=== PATIENT | male | born 1970 | race Asian ===

== ENCOUNTER → 2018-08-21 09:40 | Outpatient (CLI) | payer OTHER, SELFPAY ==
--- NOTE | 2018-08-21 09:43 | DI.NM.S_ITS ---
PROCEDURE: NM HIDA WITH CCK PHARMACEUTICAL: 5.4 mCi Tc-99m mebrofenin IV; 2.2 mcg CCK IV. INDICATIONS: atypical right chest pain TECHNIQUE: Following intravenous administration of Tc-99m mebrofenin, sequential anterior abdominal images were obtained. To evaluate the contractile response of the gallbladder in response to Cholecystokinin (CCK), sincalide (0.02 ?g/kg) was administered by slow intravenous infusion approximately 60 minutes after the administration of the radiopharmaceutical. Sequential imaging was continued for 30 minutes after the start of CCK infusion. Gallbladder ejection fraction was calculated. COMPARISON: None. FINDINGS: Biliary scan: There is normal tracer uptake and excretion by the liver. There is normal visualization of the intrahepatic ducts, common bile duct, and gallbladder. There is normal tracer transit into the duodenum. CCK stimulation: There is reduced contractile response of the gallbladder to CCK infusion. The calculated gallbladder ejection fraction is 16%; normal values are above 35%. It has been shown that any patient abdominal pain after CCK administration is related to the rate of CCK injection, rather than to any underlying gallbladder disease (Clinical Nuclear Medicine 2012; 37: 63-70. Journal of Nuclear Medicine 2014; 55: 1-9). IMPRESSION: Normal hepatobiliary scan but abnormal gallbladder ejection fraction of 16% when the lower limits of normal is 35%. Dictated by: Jorge Rizvi M.D. on 08/21/2018 at 13:46 Approved by: Jorge Rizvi M.D. on 08/21/2018 at 13:47
== END ==
PROVIDERS: PCP Family Medicine; Visit Provider Surgery
DX: K80.20 Calculus of gallbladder without cholecystitis without obstruction (principal); R07.89 Other chest pain
CPT/HCPCS: 78227; A9537; J2805

== ENCOUNTER 2018-10-22 08:12 | Day surgery (SDC) | payer OTHER, SELFPAY ==
[2018-10-11 13:27] VITALS: BMI 38.9
[2018-10-22] VITALS (11 sets, daily range): BP systolic 120–156; BP diastolic 79–108; PULSE 86–94; RESP 12–26; TEMP 36.1–37.1; O2SAT 88–97; BMI 37.6
--- NOTE | 2018-10-22 | PATH_ITS ---
[facility] Accession Number: [id number] . 01 Material submitted: . GALLBLADDER AND CONTENTS . 02 Diagnosis: Gallbladder and Contents, Laparoscopic Cholecystectomy: Chronic cholecystitis, cholelithiasis, and cholesterolosis. MRV/10/24/2018 . 02 Electronically signed: . Claudia Velarde MD, Pathologist NPI- [id number] . 01 Gross description: . Received in formalin, labeled gallbladder / contents, is an intact gallbladder (length-8.2 cm, diameter-3.7 cm) with green smooth shiny serosa and a patent cystic duct. No lymph nodes are identified. The lumen contains dark green viscous bile and multiple bright yellow gritty friable calculi (1.0 x 0.2 x 0.1 cm in aggregate). The mucosa is dark green smooth and flat. The wall is up to 0.1 cm thick. No nodules, masses or lesions are identified. Section code: (A1) cystic duct resection margin and two serial sections from the body; (A2) two longitudinal sections from the fundus. ([id number]) /MRV . 02 Pathologist provided ICD-10: K81.1 . 02 CPT . 754915 Performed at: 01 [facility] [address], [place], [place] [id number] MD Fredo Martin MD Phone: [phone] Performed at: 02 [facility] [address] [place], [place] [id number] MD Rebecca Cronin MD Phone: [phone]
[2018-10-22] MEDS: LACTATED RINGERS 1,000 ML 42 ML IV ×2 (08:53→11:05)
--- NOTE | 2018-10-22 08:53 | PM.PREOP ---
Pre-operative Note Interval Note History & Physical reviewed/Exam performed by Physician: Yes Changes to H&P: No H&P completed within 30 days and has changed as indicated here:: Patient seen and examined again in the preoperative area. There have been no changes to his history and physical examination placed on the chart within the last 30 days. Proceed with laparoscopic cholecystectomy today as planned.
[2018-10-22] MEDS: CEFAZOLIN 2 GM/100 ML FROZ.PIGGY IV (09:20)
--- NOTE | 2018-10-22 09:42 | SUR.OPER ---
Supine on padded OR bed, head on pillow, arms secured on padded arm boards at <90 degrees abduction, legs uncrossed, safety belt at thigh, tape over blanket over lower legs.
[2018-10-22] MEDS: BUPIVACAINE 0.5% (PF) VIAL 30 ML INJ (09:48)
[2018-10-22] MEDS: LIDOCAINE 1% W/EPI INJ 20 ML INJ (09:49)
[2018-10-22] MEDS: HYDROMORPHONE 2 MG INJ 0.5 MG IV ×4 (10:47→11:14)
--- NOTE | 2018-10-22 10:54 | PM.OP.1 ---
Operative Date/Time/Diagnoses Date of procedure: 10/22/18 Time of procedure: 10:54 Pre-op diagnosis: Biliary dyskinesia Post-op diagnosis: same Procedure & Clinicians Procedure: Laparoscopic cholecystectomy Same procedure as scheduled: Yes Indications: 47-year-old obese male who presented with atypical right-sided chest pain radiating to the back on occasion. He had extensive evaluation including cardiac testing and endoscopy. He remains symptomatic. Ultrasound was normal but HIDA scan demonstrated markedly decreased ejection fraction of the gallbladder. Therefore laparoscopic cholecystectomy was recommended for biliary dyskinesia. Surgeon: Durga Patino Click Yes if Unassisted: Yes Anesthesia Type: General Operative Notes Findings: 1. Copious intra-abdominal fat and generous omentum 2. Grossly normal liver, stomach, small bowel, and colon within the limits of laparoscopic visualization Closure Type: primary Specimen(s): other (Gallbladder) Prosthetic devices, grafts, tissues, transplants, or devices: None Estimated Blood Loss (mL): 25 Blood products transfused: none Procedure in detail: After obtaining informed consent the patient was brought to the operating room placed supine on the table. After satisfactory induction of anesthesia the abdomen was prepped and draped in usual sterile fashion. SCOAP time out was performed per standard protocol. A 1 :1 mixture 1% lidocaine with 1: 100,000 epinephrine and 0.5% plain Marcaine was injected in the skin and subcutaneous tissue at the superior aspect of the umbilicus for postoperative analgesia. Vertical midline incision was created for distance of approximately 3 cm above the umbilicus with 11 scalpel blade. Blunt dissection revealed the rectus fascia which was divided in the midline with 11 scalpel blade. Edges of the fascia were secured with Anne clamps and elevated into the operative field. Fascia was secured superiorly and inferiorly with interrupted 0 Vicryl suture. Under direct visualization the peritoneum was entered with Carlotta clamp and a blunt Breen 12 mm trocar was inserted. Carbon dioxide pneumoperitoneum was created and the abdomen was visually explored with a 30 degree 5 mm laparoscope. Findings are as above. Patient was placed in reverse Trendelenburg position and appropriate position was found for placement of 3 individual 5 mm trocars. First trocar was placed in the epigastric region under direct laparoscopic visualization after achieving local anesthesia. Trocar was inserted to the right of the falciform ligament. In a similar fashion 2 other trocars were placed in right lateral abdomen. Fundus of the gallbladder was secured with a ratcheted grasper and retracted superiorly and medially over the liver edge. Infundibulum of the gallbladder was secured with a 2nd ratcheted Doretha grasper and retracted inferiorly and laterally. Meticulous dissection in the triangle of Calot was performed with a Maryland dissector thereby exposing the cystic duct and cystic artery. The avascular window between the duct and the artery was identified as the duct and artery were completely encircled with the Maryland dissector. The junction of the artery with the gallbladder as well as the cystic duct with the gallbladder was clearly identified. The critical view of the liver bed through the avascular window was also obtained. Three clips were placed proximally on the cystic duct and 2 clips proximally on the cystic artery. One clip was placed distally on each structure at its junction with the gallbladder. Laparoscopic scissors were used to divide the structures and the gallbladder was then liberated from the liver bed using monopolar cautery. Specimen was placed in an endo-pouch and retrieved through the umbilical port site. Specimen was sent for permanent section. Gallbladder fossa was rendered hemostatic with monopolar cautery. Right upper quadrant was irrigated with copious amounts of sterile saline solution and noted to be hemostatic. Previously placed clips were in good position without evidence of hemorrhage or bile leak. Patient was returned to supine position in the right upper quadrant was again irrigated. Irrigant returned clear. Instruments and trocars were removed under direct visualization and noted to be hemostatic. Carbon dioxide was evacuated. Fascia at the umbilical site was closed with the previously placed 0 Vicryl suture. Skin at all 4 incisions was closed in a running subcuticular fashion with 4 0 Monocryl suture. Dermal adhesive was applied to all incisions. Anesthesia was reversed and patient extubated in the operating room. He was taken recovery stable condition. Complications: none Condition: stable Disposition: PACU Plan for aftercare: 1. Discharge home 2. Follow up in surgery Clinic in 2 weeks
[2018-10-22] MEDS: ONDANSETRON 4 MG/2 ML INJ IV (10:56)
[2018-10-22] MEDS: METOCLOPRAMIDE 10 MG/2 ML INJ IV (11:03)
--- NOTE | 2018-10-22 11:24 | SUR.PHASEI ---
pt reported ruq pain 7/10, smiling, face relaxed. denied nausea at this time, c/o need to burp. Abd distended, soft.
--- NOTE | 2018-10-22 11:54 | SUR.PHASEII ---
1145 pt to opd from pacu, surgical sites dry and clean , taking fluids and resting
[2018-10-22] MEDS: OXYCODONE/ACETAMINOPHEN 5/325 TABLET 1 TAB PO (12:44)
--- NOTE | 2018-10-22 13:16 | SUR.PHASEII ---
1305 Assumed care, received report. Friend has returned with medications, patient mostly dozing but arouses easily, states that he feels ready to go home. IV dc'd after VS, clothes given. 1314 Patient dressed, sitting up on bedside, states that he feels lightheaded, returned to bed.
--- NOTE | 2018-10-22 13:27 | SUR.PHASEII ---
1326 States that he feels drowsy; denies feeling lightheaded. Transferred well-stable. To car in w/c by volunteer. Skin warm and dry, Resp unlabored. Fresh ice pack given to take home.
== END 2018-10-22 13:26 | disposition home or self-care (01) ==
PROVIDERS: PCP Family Medicine; Visit Provider Surgery
PROC: 0FT44ZZ Resection of Gallbladder, Percutaneous Endoscopic Approach (ICD-10-PCS; CPT 47562; principal; 2018-10-22 09:15)
DX: K81.1 Chronic cholecystitis (principal); I10 Essential (primary) hypertension; K21.9 Gastro-esophageal reflux disease without esophagitis; E11.9 Type 2 diabetes mellitus without complications
CPT/HCPCS: 47562; 88304; J0690; J1100; J1170; J1885; J2250; J2405; J2704; J2765; J3010

== ENCOUNTER 2019-07-01 11:57 | Emergency (ER) | payer OTHER, SELFPAY ==
[2019-07-01 12:07] VITALS: BP 130/86; PULSE 64; RESP 13; TEMP 36.3; O2SAT 96
--- NOTE | 2019-07-01 12:11 | DI.RAD.S_ITS ---
PROCEDURE: XR CHEST 1V INDICATIONS: Chest pain TECHNIQUE: One view of the chest was acquired. COMPARISON: None. FINDINGS: Surgical changes and devices: None. Lungs and pleura: Mild streaky bibasilar opacities more pronounced on the left. Lungs are otherwise clear. No pleural effusions or pneumothorax. Mediastinum: Mediastinal contours appear normal. Heart size is normal. Bones and chest wall: No suspicious bony lesions. Overlying soft tissues appear unremarkable. IMPRESSION: Mild streaky bibasilar opacities more pronounced on the left. Findings likely represent atelectasis given slightly diminished lung volumes. Developing airspace disease/pneumonia not excluded if clinically appropriate. Dictated by: Anson Renteria M.D. on 07/01/2019 at 12:42 Approved by: Anson Renteria M.D. on 07/01/2019 at 12:44
[2019-07-01 12:45] VITALS: BP 121/78; PULSE 74; RESP 16; O2SAT 98
[2019-07-01 12:57] LABS: Add Manual Diff / Slide Review NO; Basophils Absolute Auto 100 /uL (0-100); Basophils Percent Auto 1.3 % (0-2); Eosinophils Absolute Auto 100 /uL (0-450); Eosinophils Percent Auto 1.1 % (2-4); Hematocrit 42.9 % (41-53); Hemoglobin 14.7 g/dL (13.5-17.5); Lymphocytes Absolute Auto 2500 /uL (1100-4500); Lymphocytes Percent Auto 40.3 % (25-40); Mean Corpuscular HGB Conc 34.4 % (30-36); Mean Corpuscular Hemoglobin 30.1 PG (26-34); Mean Corpuscular Volume 87.5 fL (80-100); Monocytes Absolute Auto 400 /uL (0-900); Monocytes Percent Auto 7.3 % (3-14); Neutrophils Absolute Auto 3100 /uL (1500-7000); Platelet Count 257 X10^3/uL (150-400); Red Cell Distribution Width 13.6 % (11.6-14.8); White Blood Cell Count 6.1 X10^3/uL (4.5-11.0)
[2019-07-01 13:00] VITALS: BP 114/76; PULSE 73; RESP 17; O2SAT 97
[2019-07-01 13:03] LABS: Prothrombin Time 11.4 SECONDS (10.1-12.7)
--- NOTE | 2019-07-01 13:04 | ED.CHESTPAIN ---
HPI - Chest Pain General Chief Complaint: Chest Pain Stated Complaint: shooting pain in legs/ chest pain/ numbness Time Seen by Provider: 07/01/19 12:10 Source: patient Mode of arrival: Ambulatory Limitations: no limitations History of Present Illness HPI narrative: 48-year-old male here for multiple symptoms. He states that he is having tingling down both of his legs. This does not appear to be new. Has had an MRI recently was lower back but has not had the results of this. He states that he has seen physical therapy. He was told that the physical therapist skin normally do anything for him and he needs to look at ?alternative treatments ?that is when the MRI was ordered by his primary provider. He has no urinary symptoms or bowel changes. He does thinks that his lower extremity tingling is getting worse. He is not currently taking any medication for this. He also has other symptoms to include fatigue. He does have a history of sleep apnea and does use a BiPAP at night. He states that he is still waking up during the evening. Has a history of GERD. Also has some tightness throughout his chest and tingling in his arms as well. All of the symptoms are not necessarily new. Has not tried things for his symptoms. 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 Related Data Home Medications Medication Instructions Recorded Confirmed omeprazole 40 mg capsule,delayed 40 mg PO DAILY 08/14/18 11/07/18 release prazosin 2 mg capsule 2 mg PO BID 08/14/18 11/07/18 albuterol sulfate [ProAir HFA] 1 - 2 puff INHALATION Q4-6H PRN 10/11/18 11/07/18 sildenafil [Viagra] 50 mg PO DAILY PRN 10/11/18 11/07/18 atorvastatin 5 mg DAILY 10/22/18 11/07/18 bupropion HCl 300 mg DAILY 10/22/18 10/22/18 glimepiride 2 mg DAILY 10/22/18 11/07/18 promethazine 25 mg PRN 10/22/18 11/07/18 losartan 50 mg PO DAILY 07/01/19 07/01/19 nortriptyline 25 mg PO DAILY 07/01/19 07/01/19 prazosin 1 mg PO DAILY 07/01/19 07/01/19 propranolol 60 mg PO DAILY 07/01/19 sumatriptan succinate mg PO 07/01/19 Previous Rx's Medication Instructions Recorded docusate sodium [Colace] 100 mg PO BID #14 cap 02/20/17 docusate sodium [Colace] 100 mg PO BID #14 cap 10/22/18 oxycodone 5 mg PO Q4-6H PRN #30 tab 10/22/18 sennosides [Senokot] 8.6 mg PO BEDTIME #10 tab 10/22/18 hydrocodone 5 mg-acetaminophen 300 1 tab PO Q4-6H PRN #14 tab 10/24/18 mg tablet meloxicam [Mobic] 7.5 mg PO DAILY PRN #30 tab 07/01/19 Allergies Allergy/AdvReac Type Severity Reaction Status Date / Time No Known Drug Allergies Allergy Verified 10/21/18 13:08 Review of Systems Constitutional Constitutional: Denies body ache(s), Denies chills, Reports fatigue, Denies frequent falls, Denies headache(s), Reports lethargy, Reports malaise and Reports weakness Eyes Eyes: Denies change in vision ENT Ears, Nose, Mouth, and Throat: Denies vertigo, Denies dizziness, Denies headache(s) and Denies disequilibrium Cardiovascular Cardiovascular: Denies palpitations and Denies dyspnea Respiratory Respiratory: Denies cough and Denies dyspnea Gastrointestinal Gastrointestinal: Denies abdominal pain, Denies nausea and Denies vomiting Musculoskeletal Musculoskeletal: Denies myalgias, Denies arthralgias, Reports muscle weakness, Reports radiating pain into limb and Reports tingling Integumentary/Breasts Skin/Breast: Denies lesions and Denies rash Neurologic Neurologic: Denies behavioral changes, Denies vertigo, Denies dizziness, Denies frequent falls, Denies headache(s), Denies lack of coordination, Denies restless legs, Denies convulsions, Reports tingling, Denies disequilibrium and Reports weakness Psychiatric Psychiatric: Denies behavioral changes Endocrine Endocrine: Reports fatigue and Denies palpitations Hematologic/Lymphatic Hematologic/Lymphatic: Denies easy bleeding and Denies easy bruising Allergic/Immunologic Allergic/Immunologic: Denies urticaria Patient History Medical History Biliary dyskinesia (Acute) Cholelithiasis (Acute) Difficulty swallowing (Chronic) GERD (gastroesophageal reflux disease) (Chronic) Heartburn (Chronic) Hypertension (Acute) Lipoma of abdominal wall (Acute) Type 2 diabetes mellitus (Chronic ~09/20/18) Social History marital status: household members: spouse and children occupational status: employed Substance Use Type: does not use Exam Initial Vital Signs Initial Vital Signs: Vital Signs Temperature 97.4 F L 07/01/19 12:07 Pulse Rate 64 07/01/19 12:07 Respiratory Rate 13 07/01/19 12:07 Blood Pressure 130/86 07/01/19 12:07 Pulse Oximetry 96 07/01/19 12:07 Const General: cooperative, comfortable and well developed Orientation: alert, awake and oriented x3 HENMT Head: normal to inspection and normocephalic Resp Effort & Inspection: normal respiratory effort Auscultation: clear to auscultation bilaterally Cardio Rate: regular rate Rhythm: regular rhythm Skin Lesions: no lesions Rashes: no rashes Neuro General: alert, awake and oriented x3 Cranial Nerves: CN's II-XI intact bilaterally Cognition: normal cognition Speech: speech normal Motor: muscle tone normal throughout Sensory Exam: no sensory deficits noted Extrem General: normal to inspection, capillary refill normal and No edema Psych Appearance: grossly normal and well kempt Course Orders Ordered: ED Orders 07/01/19 12:11 XR chest 1V Stat EKG-12 Lead Stat 07/01/19 12:20 Complete Blood Count AUTO DIFF Stat Comprehensive Metabolic Panel Stat Lipase Stat Partial Thromboplastin Time Stat Prothrombin Time INR Stat Troponin I Stat Vital Signs Vital signs: Vital Signs - 8 hr 07/01/19 12:07 Temperature 97.4 F L Pulse Rate 64 Respiratory Rate 13 Blood Pressure 130/86 Pulse Oximetry 96 MDM - Chest Pain Lab Data Attestation: I reviewed the patient's lab results. Result diagrams: 07/01/19 12:20 07/01/19 12:20 Labs: Lab Results 07/01/19 07/01/19 07/01/19 Range/Units 12:20 12:20 12:20 WBC 6.1 (4.5-11.0) X10^3/uL RBC 4.90 (4.5-5.9) X10^6/uL Hgb 14.7 (13.5-17.5) g/dL Hct 42.9 (41-53) % MCV 87.5 (80-100) fL MCH 30.1 (26-34) PG MCHC 34.4 (30-36) % RDW 13.6 (11.6-14.8) % Plt Count 257 (150-400) X10^3/uL Neut % (Auto) 50.0 (50-75) % Lymph % (Auto) 40.3 H (25-40) % Davie % (Auto) 7.3 (3-14) % Eos % (Auto) 1.1 L (2-4) % Baso % (Auto) 1.3 (0-2) % Neut # (Auto) 3100 (0749-6006) /uL Lymph # (Auto) 2500 (1426-9302) /uL Davie # (Auto) 400 (0-900) /uL Eos # (Auto) 100 (0-450) /uL Baso # (Auto) 100 (0-100) /uL PT 11.4 (10.1-12.7) SECONDS INR 1.0 (0.9-1.3) APTT 31 (26.4-36.2) SECONDS Sodium 139 (137-145) mmol/L Potassium 4.1 (3.4-5.1) mmol/L Chloride 104 (98-107) mmol/L Carbon Dioxide 24 (22-32) mmol/L BUN 17 (9-20) mg/dL Creatinine 1.00 (0.66-1.25) mg/dL Estimated GFR > 60.0 (>60) mL/min BUN/Creatinine Ratio 17.0 (6-22) Glucose 141 H (70-100) mg/dL Calcium 9.1 (8.4-10.2) mg/dL Total Bilirubin 0.5 (0.2-1.3) mg/dL AST 46 (17-59) IU/L ALT 73 H (<50) IU/L Alkaline Phosphatase 55 (38-126) U/L Troponin I < 0.012 (0.01-0.034) ng/mL Total Protein 7.6 (6.3-8.2) g/dL Albumin 4.4 (3.5-5.0) g/dL Globulin 3.2 (1.7-4.1) g/dL Albumin/Globulin Ratio 1.4 (1.0-2.8) Lipase 162 (23-300) U/L Imaging Data Chest x-ray: Radiologist's impression: [address] [address] XRay Report Signed Patient: Yash Rogers BMR#: [id number] : 1970Acct:[id number] Age/Sex: 48 / MDate of Service: 07/01/19 Loc: ED Accession Number: [id number] Procedure: XR chest 1V Ordering Provider: Jacoby Sun D.O. PROCEDURE: XR CHEST 1V INDICATIONS: Chest pain TECHNIQUE: One view of the chest was acquired. COMPARISON: None. FINDINGS: Surgical changes and devices: None. Lungs and pleura: Mild streaky bibasilar opacities more pronounced on the left. Lungs are otherwise clear. No pleural effusions or pneumothorax. Mediastinum: Mediastinal contours appear normal. Heart size is normal. Bones and chest wall: No suspicious bony lesions. Overlying soft tissues appear unremarkable. IMPRESSION: Mild streaky bibasilar opacities more pronounced on the left. Findings likely represent atelectasis given slightly diminished lung volumes. Developing airspace disease/pneumonia not excluded if clinically appropriate. Dictated by: Anson Renteria M.D. on 07/01/2019 at 12:42 Approved by: Anson Renteria M.D. on 07/01/2019 at 12:44 ECG Data Attestation: I personally reviewed and interpreted this ECG as follows: Prior ECG tracings: not available for review Interpretation: Sinus rhythm Normal axis Normal QRS Normal QTC No ST T wave changes MDM Narrative Medical decision making narrative: Patient's EKG is unremarkable. Chest x-ray is unremarkable. Exam is not consistent with ACS. Not consistent with TIA or CVA. His lower extremity symptoms are consistent with his radiculopathy most likely from spinal stenosis. He has an MRI that is already pending the results of. He has a primary doctor for this. Has generalized fatigue. Electrolytes were unremarkable. Informed him that he should talk to his primary doctor about potentially getting re-evaluated for his sleep apnea. Will hold on further workup for now. Patient was given return precautions and follow-up instructions. He expressed understanding and agreement plan. Discharge Plan Departure Patient Disposition: Home Clinical Impression: Distal paresthesia Fatigue Qualifiers: Fatigue type: unspecified Qualified Code(s): R53.83 - Other fatigue Instructions: DI for Fatigue Activity Restrictions/Additional Instructions: Continue all of your medications as directed. Contact your primary provider for follow-up. Return to the emergency department for any new or worsening symptoms Prescriptions: New meloxicam [Mobic] 7.5 mg tablet 7.5 mg PO DAILY PRN (Reason: pain, mild) Qty: 30 RF: 0 No Action docusate sodium [Colace] 100 MG capsule 100 mg PO BID Qty: 14 RF: 1 hydrocodone-acetaminophen [Vicodin] 5-300 mg tablet 1 tab PO Q4-6H PRN (Reason: pain) Qty: 14 RF: 0 omeprazole 40 mg capsule,delayed release(DR/EC) 40 mg PO BID RF: 0 prazosin 2 mg capsule 2 mg PO DAILY RF: 0 sildenafil [Viagra] 50 mg Tablet 50 mg PO DAILY PRN (Reason: Sexual Activity) RF: 0 albuterol sulfate [ProAir HFA] 90 mcg/actuation Hfa Aerosol Inhaler 1 - 2 puff INHALATION Q4-6H PRN (Reason: Shortness Of Breath) RF: 0 atorvastatin 10 mg Tablet 5 mg PO DAILY Qty: 0 RF: 0 glimepiride 2 mg Tablet 2 mg PO DAILY Qty: 0 RF: 0 bupropion HCl 300 mg Tablet Extended Release 24 Hr 300 mg PO QAM Qty: 0 RF: 0 promethazine 25 mg 25 mg PRN (Reason: Nausea) RF: 0 sennosides [Senokot] 8.6 mg tablet 8.6 mg PO BEDTIME Qty: 10 RF: 1 docusate sodium [Colace] 100 mg capsule 100 mg PO BID Qty: 14 RF: 1 oxycodone 5 mg tablet 5 mg PO Q4-6H PRN (Reason: pain) Qty: 30 RF: 0 losartan 50 mg tablet 50 mg PO DAILY RF: 0 prazosin 1 mg capsule 1 mg PO DAILY RF: 0 sumatriptan succinate 50 mg tablet PO RF: 0 propranolol 40 mg tablet 60 mg PO DAILY RF: 0 nortriptyline 25 mg Capsule 25 mg PO DAILY RF: 0 Referrals: [facility] [Primary Care Provider] -
[2019-07-01 13:05] LABS: PTT Partial Thromboplastin Tim 31 SECONDS (26.4-36.2)
[2019-07-01 13:06] LABS: Alanine Aminotransferase 73 IU/L (<50); Albumin 4.4 g/dL (3.5-5.0); Albumin Globulin Ratio 1.4 (1.0-2.8); Alkaline Phosphatase 55 U/L (38-126); Aspartate Aminotransferase 46 IU/L (17-59); Bilirubin Total 0.5 mg/dL (0.2-1.3); Blood Urea Nitrogen 17 mg/dL (9-20); Calcium 9.1 mg/dL (8.4-10.2); Carbon Dioxide 24 mmol/L (22-32); Chloride 104 mmol/L (98-107); Estimated Glomerular Filt Rate > 60.0 mL/min (>60); Globulin 3.2 g/dL (1.7-4.1); Glucose 141 mg/dL (70-100); HEMOLYSIS 27 (0-50); Lipase 162 U/L (23-300); Potassium 4.1 mmol/L (3.4-5.1); Sodium 139 mmol/L (137-145); Total Protein 7.6 g/dL (6.3-8.2)
[2019-07-01 13:18] LABS: Troponin I < 0.012 ng/mL (0.01-0.034)
[2019-07-01 14:00] VITALS: BP 112/77; PULSE 73; RESP 18; O2SAT 98
== END 2019-07-01 14:30 | disposition home or self-care (01) ==
PROVIDERS: Emergency Provider Emergency Medicine; PCP Family Medicine
DX: R20.2 Paresthesia of skin (principal); R53.83 Other fatigue; R07.9 Chest pain, unspecified
CPT/HCPCS: 36415; 71045; 80053; 83690; 84484; 85025; 85610; 85730; 93005; 99283; 99285

== ENCOUNTER 2019-07-17 18:10 | Emergency (ER) | payer OTHER, SELFPAY ==
[2019-07-17 18:38] VITALS: BP 131/77; PULSE 76; RESP 15; TEMP 36.8; O2SAT 100; BMI 37.9
--- NOTE | 2019-07-17 18:45 | DI.RAD.S_ITS ---
PROCEDURE: XR CHEST 2V INDICATIONS: cough, fever TECHNIQUE: 2 views of the chest were acquired. COMPARISON: [facility], CR, XR CHEST 1V, 07/01/2019, 12:19. FINDINGS: Surgical changes and devices: None. Lungs and pleura: Lungs are clear. No pleural effusions or pneumothorax. Mediastinum: Mediastinal contours are normal. Heart size is normal. Bones and chest wall: No suspicious bony abnormalities. Soft tissues appear unremarkable. IMPRESSION: No acute cardiopulmonary pathology. Dictated by: Jose Link M.D. on 07/17/2019 at 19:34 Approved by: Jose Link M.D. on 07/17/2019 at 19:36
[2019-07-17 19:30] LABS: Influenza A - CEPHEID Flu A NEGATIVE (NEGATIVE); Influenza B - CEPHEID Flu B NEGATIVE (NEGATIVE)
[2019-07-17 20:09] VITALS: BP 122/79; PULSE 73; RESP 19; O2SAT 98
--- NOTE | 2019-07-17 20:34 | ED.URI ---
HPI - URI/Sore Throat <Cordelia Hendersonmer, [employer] - Last Filed: 07/17/19 20:38> General Chief Complaint: Upper Respiratory Symptoms Stated Complaint: COUGH, CONGESTION Time Seen by Provider: 07/17/19 18:36 Source: patient Mode of arrival: Ambulatory Limitations: no limitations History of Present Illness HPI Narrative: The patient is a 48-year-old male nonsmoker with history of hyperlipidemia and diabetes who presents chief complaint of cough and congestion. He states this has been going on for about 4 days. Complains of nasal pressure, denies any ear pain, complains of sore throat with coughing. States that his cough is nonproductive. Complains of fever and general malaise. He has tried Flonase for a few days to feel better, but overall not taken anything else. He denies any chest pain, nausea vomiting or diarrhea. He thinks it might be related to sleep apnea machine, and he has a call out to his sleep specialist. He does use a humidifier. Related Data Home Medications Medication Instructions Recorded Confirmed omeprazole 40 mg capsule,delayed 40 mg PO BID 08/14/18 07/01/19 release prazosin 2 mg capsule 2 mg PO BEDTIME 08/14/18 07/01/19 albuterol sulfate [ProAir HFA] 1 - 2 puff INHALATION Q4H PRN 10/11/18 11/07/18 sildenafil [Viagra] 25 mg PO DAILY PRN MDD 50 mg 10/11/18 07/01/19 atorvastatin 5 mg PO DAILY #0 10/22/18 07/01/19 bupropion HCl 300 mg PO QAM #0 10/22/18 07/01/19 promethazine 25 mg PO DAILY PRN #0 10/22/18 07/01/19 ammonium lactate 1 applic TOPICAL TID 07/01/19 07/01/19 glimepiride 1 mg PO QAM 07/01/19 07/01/19 losartan 50 mg PO DAILY 07/01/19 07/01/19 nortriptyline 25 mg PO BEDTIME 07/01/19 07/01/19 propranolol 60 mg PO DAILY 07/01/19 sumatriptan succinate 50 mg PO PRN PRN MDD 2 tabs 07/01/19 07/01/19 triamcinolone acetonide 1 applic TOPICAL BID PRN 07/01/19 07/01/19 urea 1 applic TOPICAL BID 07/01/19 07/01/19 Previous Rx's Medication Instructions Recorded docusate sodium [Colace] 100 mg PO BID #14 cap 02/20/17 docusate sodium [Colace] 100 mg PO BID #14 cap 10/22/18 meloxicam [Mobic] 7.5 mg PO DAILY PRN #30 tab 07/01/19 Allergies Allergy/AdvReac Type Severity Reaction Status Date / Time No Known Drug Allergies Allergy Verified 07/17/19 18:37 Review of Systems <ZACK Correia - Last Filed: 07/17/19 20:38> Review of Systems Narrative: GENERAL: Denies chills, fatigue, malaise, fever, sweats. HEENT: See HPI RESPIRATORY: See HPI CARDIOVASCULAR: Denies chest pain, palpitations, orthopnea, edema, GASTROINTESTINAL: Denies nausea, vomiting, abdominal pain, diarrhea, constipation, melena. : Denies dysuria, frequency, incontinence, hematuria, urinary retention. MUSCULOSKELETAL: denies weakness, joint pain, or bony pain SKIN: Denies rash, skin lesions, or other NEUROLOGIC: Denies weakness, headache, numbness, change in speech, confusion, seizures, incoordination. PSYCHIATRIC: No concerning psychosocial issues. 12 point review of systems is negative except for those stated above Patient History <ZACK Correia - Last Filed: 07/17/19 20:38> Medical History Biliary dyskinesia (Acute) Cholelithiasis (Acute) Difficulty swallowing (Chronic) GERD (gastroesophageal reflux disease) (Chronic) Heartburn (Chronic) Hypertension (Acute) Lipoma of abdominal wall (Acute) Type 2 diabetes mellitus (Chronic ~09/20/18) Surgical History H/O hernia repair (Resolved) History of hernia repair (Acute) Status post excision of lipoma (Acute) Family History Mother Hypertension Social History marital status: household members: spouse and children occupational status: employed Smoking Status: Former smoker Smoking Status: Former smoker alcohol intake frequency: holidays/special occasions only Substance Use Type: does not use Exam <ZACK Correia - Last Filed: 07/17/19 20:38> Narrative Exam Narrative: GENERAL: This is a well-nourished, morbidly obese male in no acute distress s. HEAD: Atraumatic. Normocephalic. No temporal or scalp tenderness. EYES: Pupils equal round and reactive. Extraocular motions intact. No scleral icterus. No injection or drainage. ENT: Nose without bleeding, purulent drainage or septal hematoma. Throat without erythema, tonsillar hypertrophy or exudate. Uvula midline. Airway patent. Bilateral TMs pearly peng. NECK: Trachea midline. No JVD or lymphadenopathy. Supple, nontender, no meningeal signs. CARDIOVASCULAR: Regular rate and rhythm without murmurs, gallops, or rubs. RESPIRATORY: Clear to auscultation. Breath sounds equal bilaterally. No wheezes, rales, or rhonchi. No cough. No increased respiratory effort. No accessory muscle use. GASTROINTESTINAL: Abdomen soft, non-tender, nondistended. No hepato-splenomegaly, or palpable masses. No guarding. EXTREMITIES: No clubbing, cyanosis, or edema. No joint tenderness, effusion, or edema noted. BACK: Nontender without deformity or crepitance. No flank tenderness. NEURO: AOx3. SKIN: No rash or erythema on visible exam Initial Vital Signs Initial Vital Signs: Vital Signs Temperature 98.3 F 07/17/19 18:38 Pulse Rate 76 07/17/19 18:38 Respiratory Rate 15 07/17/19 18:38 Blood Pressure 131/77 07/17/19 18:38 Pulse Oximetry 100 07/17/19 18:38 <Jacoby Sun DO - Last Filed: 07/17/19 23:06> Initial Vital Signs Initial Vital Signs: Vital Signs Temperature 98.3 F 07/17/19 18:38 Pulse Rate 76 07/17/19 18:38 Respiratory Rate 15 07/17/19 18:38 Blood Pressure 131/77 07/17/19 18:38 Pulse Oximetry 100 07/17/19 18:38 Course <ZACK Correia - Last Filed: 07/17/19 20:38> Orders Ordered: ED Orders 07/17/19 18:45 XR chest 2V Stat 07/17/19 18:52 Influenza A & B (PCR) Stat Vital Signs Vital signs: Vital Signs - 8 hr 07/17/19 18:38 07/17/19 20:09 Temperature 98.3 F Pulse Rate 76 73 Respiratory Rate 15 19 Blood Pressure 131/77 Blood Pressure [Right Arm] 122/79 Pulse Oximetry 100 98 <Jacoby Sun DO - Last Filed: 07/17/19 23:06> Orders Ordered: ED Orders 07/17/19 18:45 XR chest 2V Stat 07/17/19 18:52 Influenza A & B (PCR) Stat Vital Signs Vital signs: Vital Signs - 8 hr 07/17/19 18:38 07/17/19 20:09 Temperature 98.3 F Pulse Rate 76 73 Respiratory Rate 15 19 Blood Pressure 131/77 Blood Pressure [Right Arm] 122/79 Pulse Oximetry 100 98 MDM - URI/Sore Throat <ZACK Correia - Last Filed: 07/17/19 20:38> Lab Data Labs: Lab Results 07/17/19 Range/Units 18:52 Influenza A (RT-PCR) Flu a negative (NEGATIVE) Influenza B (RT-PCR) Flu b negative (NEGATIVE) Imaging Data Chest x-ray: Radiologist's impression: [place] [address] XRay Report Signed Patient: Yash Rogers BMR#: [id number] : 1970Acct:[id number] Age/Sex: 48 / MDate of Service: 07/17/19 Loc: ED Accession Number: [id number] Procedure: XR chest 2V Ordering Provider: Cordelia Santacruz PROCEDURE: XR CHEST 2V INDICATIONS: cough, fever TECHNIQUE: 2 views of the chest were acquired. [facility]19. FINDINGS: Surgical changes and devices: None. Lungs and pleura: Lungs are clear. No pleural effusions or pneumothorax. Mediastinum: Mediastinal contours are normal. Heart size is normal. Bones and chest wall: No suspicious bony abnormalities. Soft tissues appear unremarkable. IMPRESSION: No acute cardiopulmonary pathology. Dictated by: Jose Link M.D. on 07/17/2019 at 19:34 Approved by: Jose Link M.D. on 07/17/2019 at 19:36 [facility] Narrative Medical decision making narrative: The patient is a 48-year-old male who presents with a chief complaint of cough cold congestion symptoms for the past 4 days. X-ray shows no pneumonia. His flu test is negative. I discussed that he does not warrant antibiotic treatment for sinusitis given the short duration of symptoms. Encouraged use of Sudafed, Flonase, Neti pot etcetera. Encouraged follow-up with primary care provider as well as a sleep specialist. Patient has been hemodynamically stable throughout his stay in the emergency department. Patient has no questions or concerns upon discharge and states understanding of return precautions as well as follow-up care. <Jacoby Sun DO - Last Filed: 07/17/19 23:06> Lab Data Labs: Lab Results 07/17/19 Range/Units 18:52 Influenza A (RT-PCR) Flu a negative (NEGATIVE) Influenza B (RT-PCR) Flu b negative (NEGATIVE) Discharge Plan Departure Patient Disposition: Home Clinical Impression: Upper respiratory infection Qualifiers: URI type: unspecified viral URI Qualified Code(s): J06.9 - Acute upper respiratory infection, unspecified Discharge Date/Time: 07/17/19 20:28 Instructions: DI for Viral Upper Respiratory Infection -- Adult Activity Restrictions/Additional Instructions: Today your flu test came back negative Your x-ray shows no signs of pneumonia Please follow-up with primary care provider as well as sleep provider as we discussed Please use [id number] measures such as Flonase, Daniel med sinus rinse or Neti pot, Sudafed Please come back to the emergency department for any acute concerns such as concern of heart attack or stroke Prescriptions: No Action docusate sodium [Colace] 100 MG capsule 100 mg PO BID Qty: 14 RF: 1 omeprazole 40 mg capsule,delayed release(DR/EC) 40 mg PO BID RF: 0 prazosin 2 mg capsule 2 mg PO BEDTIME RF: 0 sildenafil [Viagra] 50 mg Tablet 25 mg PO DAILY MDD 50 mg PRN (Reason: Sexual Activity) RF: 0 albuterol sulfate [ProAir HFA] 90 mcg/actuation Hfa Aerosol Inhaler 1 - 2 puff INHALATION Q4H PRN (Reason: Shortness Of Breath) RF: 0 atorvastatin 10 mg Tablet 5 mg PO DAILY Qty: 0 RF: 0 promethazine 25 mg Tablet 25 mg PO DAILY PRN (Reason: nausea or vomiting) Qty: 0 RF: 0 bupropion HCl 300 mg Tablet Extended Release 24 Hr 300 mg PO QAM Qty: 0 RF: 0 docusate sodium [Colace] 100 mg capsule 100 mg PO BID Qty: 14 RF: 1 meloxicam [Mobic] 7.5 mg tablet 7.5 mg PO DAILY PRN (Reason: pain, mild) Qty: 30 RF: 0 losartan 50 mg tablet 50 mg PO DAILY RF: 0 sumatriptan succinate 50 mg tablet 50 mg PO PRN MDD 2 tabs PRN (Reason: Headache) RF: 0 propranolol 40 mg tablet 60 mg PO DAILY RF: 0 nortriptyline 25 mg Capsule 25 mg PO BEDTIME RF: 0 ammonium lactate 12 % Lotion 1 applic TOPICAL TID RF: 0 urea 10 % Lotion 1 applic TOPICAL BID RF: 0 triamcinolone acetonide 0.1 % Cream 1 applic TOPICAL BID PRN (Reason: itching or rash) RF: 0 glimepiride 1 mg Tablet 1 mg PO QAM RF: 0 Referrals: [facility] [Primary Care Provider] - <Jacoby Sun DO - Last Filed: 07/17/19 23:06> Sign Out Provider Sign Out Attestation: Dr Sun Co-Sign Statement: I was available for consultation during this patient's emergency department visit. This chart is signed by myself for administrative purposes only. I did not have direct contact with this patient during this visit. They were seen independently by the APC.
== END 2019-07-17 20:28 | disposition home or self-care (01) ==
PROVIDERS: Emergency Provider Nurse Practitioner Family; PCP Family Medicine
DX: J06.9 Acute upper respiratory infection, unspecified (principal)
CPT/HCPCS: 71046; 87502; 99282; 99283

== ENCOUNTER → 2020-02-09 11:02 | Outpatient (CLI) | payer OTHER, SELFPAY ==
--- NOTE | 2020-02-09 | DI.MRI.S_ITS ---
PROCEDURE: MR CERVICAL SPINE WO CON INDICATIONS: Radiculopathy, cervical region TECHNIQUE: Noncontrast sagittal T1 spin echo and T2 fast spin echo, sagittal STIR, foraminal oblique sagittal T2 fast spin echo, and axial gradient echo or T2 fast spin echo through the cervical spine. COMPARISON: None. FINDINGS: Image quality: This examination is limited by involuntary motion artifact. Alignment and Curvature: There is straightening of the normal cervical lordosis. No focal AP alignment abnormality is seen. Bone Marrow: Marrow demonstrates normal overall signal. Spinal Cord: Visualized spinal cord has normal size and signal. No cerebellar tonsillar herniation. Paraspinous Soft Tissues: No paravertebral masses. Prevertebral soft tissues are normal in thickness. C2-C3: The disc height is well-preserved. Loss of disc signal is seen at this level. A mild degree of generalized disc osteophyte complex is seen. Mild to moderate facet hypertrophy is seen. There is mild to moderate right-sided and mild left-sided neural foraminal narrowing seen. Mild central canal narrowing is seen. C3-C4: Minimal loss of disc height is seen. Loss of disc signal is seen. Moderate disc osteophyte complex is seen, with a mild central disc protrusion. There is moderate right-sided and [id number] left-sided facet hypertrophy seen. There is mild to moderate bilateral neural foraminal narrowing seen. Moderate central narrowing is seen. There is associated mild mass effect upon the ventral spinal cord. C4-C5: The disc height is well-preserved. Loss of disc signal is seen at this level. A mild degree of generalized disc osteophyte complex is seen. Mild facet joint hypertrophy is seen. There is mild right-sided and minimal left-sided neural foraminal narrowing seen. Mild central canal narrowing is seen. C5-C6: The disc height is well-preserved. Loss of disc signal is seen at this level. A mild degree of generalized disc osteophyte complex is seen. Mild facet joint hypertrophy is seen. Mild to moderate bilateral neural foraminal narrowing is seen. Mild central canal narrowing is seen. C6-C7: Minimal loss of disc height is seen. There is loss of disc signal. Mild to moderate disc osteophyte complex is seen, which is eccentric to the right. Moderate bilateral neural foraminal narrowing is seen. Mild central canal narrowing is seen. C7-T1: No significant abnormality is seen. IMPRESSION: Multiple levels of cervical spine degenerative change are seen, which are overall most prominent at the C3-C4 level and the C6-C7 level. Straightening of the normal cervical lordosis is seen, which is commonly observed in patients with muscular spasm. Dictated by: Palmer Eason M.D. on 02/09/2020 at 11:06 Approved by: Palmer Eason M.D. on 02/09/2020 at 11:11
== END ==
PROVIDERS: PCP Family Medicine; Referring Provider Physical Medicine & Rehabilitation; Visit Provider Physical Medicine & Rehabilitation
DX: M47.22 Other spondylosis with radiculopathy, cervical region (principal)
CPT/HCPCS: 72141